=== PATIENT | male | born 1955 | race Two or more races ===

== ENCOUNTER 2017-10-09 13:49 | Emergency (ER) | payer OTHER ==
[~2017-10-09] VITALS: Ht 180.3 cm; Wt 88.5 kg
[~2017-10-09 13:49] MED LIST: ADERAL; AMOX1TAB12 PO; ARICEPT10 MG; INDERAL LA80 MG; INTESTINEX1 CAP PO; LAMICTAL25 MG; NASONEX17 GM NS; SEROQUEL400 MG; STRATTERA60 MG; ZYRTEC10 MG PO
== END 2017-10-09 17:51 | disposition home or self-care (01) ==
LOC: ER 13:49
DX: R42 Dizziness and giddiness (principal)

== ENCOUNTER 2018-01-23 14:42 | Emergency (ER) | payer OTHER ==
[~2018-01-23] VITALS: Ht 180.3 cm; Wt 85.7 kg
[2018-01-23] MEDS ORDERED: PROPRANOLOL HCL10 MG (15:26)
[2018-01-23] MEDS ORDERED: SEROQUEL400 MG (15:26)
[2018-01-23] MEDS ORDERED: LAMICTAL200 M1 (15:26)
[2018-01-23] MEDS ORDERED: RISPERDAL1 MG (15:27)
[2018-01-23] MEDS ORDERED: MECLIZINE HCL25 M1 (15:27)
== END 2018-01-23 17:56 | disposition home or self-care (01) ==
LOC: ER 14:42
DX: H93.13 Tinnitus, bilateral (principal)

== ENCOUNTER → 2018-04-15 | Emergency (ER) | payer OTHER ==
[~2018-04-15] VITALS: Ht 180.3 cm; Wt 90.7 kg
[~2018-04-15] MED LIST changes: +LAMICTAL200 M1; +MECLIZINE HCL25 M1; +PROPRANOLOL HCL10 MG; +RISPERDAL1 MG
== END | disposition home or self-care (01) ==
LOC: ER 12:34
DX: K52.89 Other specified noninfective gastroenteritis and colitis (principal)

== ENCOUNTER 2018-05-22 12:04 | Emergency (ER) | payer OTHER ==
[~2018-05-22] VITALS: Ht 180.3 cm; Wt 90.7 kg
== END 2018-05-22 21:09 | disposition home or self-care (01) ==
LOC: ER 12:04
DX: J06.9 Acute upper respiratory infection, unspecified (principal)

== ENCOUNTER 2018-08-23 13:36 | Inpatient (IN) | payer OTHER ==
[~2018-08-23] VITALS: Ht 180.3 cm; Wt 90.7 kg
[2018-08-29] MEDS ORDERED: AMOX-CLAV 875-1 EACH PO (11:08)
== END 2018-08-29 11:55 | disposition home or self-care (01) | DRG 392 ==
LOC: ER 13:36 → SEC-K 08-24 10:04 → MEDI 08-24 10:04
PROVIDERS: ADMIT Internal Medicine
DX: K57.20 Diverticulitis of large intestine with perforation and abscess without bleeding (principal); Q61.02 Congenital multiple renal cysts; F31.89 Other bipolar disorder; E86.0 Dehydration; E87.8 Other disorders of electrolyte and fluid balance, not elsewhere classified; D72.828 Other elevated white blood cell count

== ENCOUNTER 2025-02-21 19:21 | Emergency (ER) | payer OTHER ==
[~2025-02-21] VITALS: Ht 180.3 cm; Wt 95.7 kg
[~2025-02-21 19:21] MED LIST changes: +AMOX-CLAV 875-1 EACH PO
[2025-02-21] MEDS ORDERED: ADDERALL 30 MG30 MG (20:12)
[2025-02-21] MEDS ORDERED: ARICEPT5 MG (20:13)
[2025-02-21] MEDS ORDERED: 0.9 % SODIUM CHLORIDE 1,000 ML IV SCH (21:00)
[2025-02-21] MEDS ORDERED: METRONIDAZOLE/SODIUM CHLORIDE 500 MG/100 ML PIGGYBACK IV ONE ×2 (21:00→21:43)
[2025-02-21] MEDS ORDERED: FAMOTIDINE/PF 20 MG/2 ML VIAL IV ONE (21:00)
[2025-02-21] MEDS ORDERED: CIPROFLOXACIN IN 5 % DEXTROSE 400 MG/200 ML PIGGYBAG IV ONE ×2 (21:00→21:43)
[2025-02-21] MEDS ORDERED: FAMOTIDINE/PF 20 MG/2 ML VIAL ONE (21:43)
[2025-02-21 23:27] LABS: BASO % 0.3 % (0.1-1.2); EOS # 0.04 (0.04-0.54); EOS % 0.2 % (0.7-7.0); LYMPH # 1.70 (1.18-3.74); LYMPH % 7.7 % (19.3-53.1); MEAN PLATELET VOLUME 9.70 fl (9.4-12.4); MONO # 1.70 (0.24-0.82); MONO % 7.7 % (4.7-12.5); NEUT # 18.37 (1.56-6.13); NEUT % 83.6 % (34.0-71.1); RED CELL DISTRIBUTION WIDTH 13.0 % (11.6-14.4)
[2025-02-21 23:40] LABS: ERYTHROCYTE SEDIMENTATION RATE 27 mm/hr (0-20)
[2025-02-21 23:50] LABS: URINE APPEARANCE Clear; URINE BILIRRUBIN Negative (NEGATIVE); URINE BLOOD Negative; URINE COLOR Yellow; URINE GLUCOSE Negative (NEGATIVE); URINE KETONE Negative (NEGATIVE); URINE LEUKOCYTE Trace; URINE NITRATE Negative; URINE PROTEIN 30 (NEGATIVE); URINE UROBILINOGEN 0.2 E.U./dl
[2025-02-21 23:54] LABS: URINE BACTERIA 14.3 uL (0.0-1933); URINE EPITHELIAL CELLS 4.2 uL (0.0-38.8); URINE RBC 34.9 uL (0.0-20.8); URINE WBC 3.3 uL (0.0-23.2)
[2025-02-22 00:07] LABS: URINE CAST 0.00 uL (0.0-1.40)
[2025-02-22 00:09] LABS: ALT/SGPT 32.0 U/L (12-78); AST/SGOT 18.0 U/L (15-37); BILIRUBIN TOTAL 0.9 mg/dL (0.3-1.2); BUN CREA RATIO 18.0 (7.0-25.0); CREATININE SERUM 1.25 mg/dL (0.70-1.30); GFR 57.61; GLOBULINA 4.9 G/DL (2.4-3.5); GLUCOSE FASTING 145.0 mg/dL (65-100); OSMOLALITY SERUM 283.0 MOSM/KG (275-295)
[2025-02-22] MEDS ORDERED: POTASSIUM CHLORIDE 10 MEQ CAPSULE PO ONE (00:15)
[2025-02-22] MEDS ORDERED: POTASSIUM BICARBONATE/CIT AC 25 MEQ TABLET.EFF PO STA (02:59)
[2025-02-22] MEDS ORDERED: MORPHINE SULFATE 4 MG/ML CARTRIDGE IV STA (03:00)
[2025-02-22] MEDS ORDERED: PEPCID AC20 MG PO (06:36)
[2025-02-22] MEDS ORDERED: CIPRO500 MG PO (06:36)
[2025-02-22] MEDS ORDERED: METRONIDAZOLE500 MG PO (06:36)
== END 2025-02-22 06:47 | disposition home or self-care (01) ==
LOC: ER 19:22
PROVIDERS: Student in an Organized Health Care Education/Training Program
DX: K52.9 Noninfective gastroenteritis and colitis, unspecified (principal); E86.0 Dehydration; R10.9 Unspecified abdominal pain
CPT/HCPCS: 36415; 74177; 93005; 96365; 96366; 99284; J0744; J2270; J3490 ×2; J7030; Q9965